=== PATIENT | female | born 1935 | race Caucasian/White ===

== ENCOUNTER 2017-08-19 09:34 | Inpatient (IN) ==
[2017-08-19] MEDS ORDERED: ALBUTEROL/IPRATROPIUM 3 ML NEB RESP TX STA (09:57)
[2017-08-19] MEDS ORDERED: SODIUM CHLORIDE 0.9% 1,000 ML IV STA (10:14)
[2017-08-19] MEDS ORDERED: LEVOFLOXACIN INJ 750 MG in PREMIX 1 EACH IV STA (10:35)
[2017-08-19 10:37] LABS: Basophils % 0.2 % (0.0-0.8); Eosinophils % 0.2 % (0.00-10.9); Hematocrit 45.1 VOL% (35.7-47.0); Hemoglobin 14.6 GM/DL (12.0-16.0); Immature Granulocytes % 0.6 %; Immature Granulocytes Absolute 0.08 #; Lymphocytes # 0.4 10*3/uL (1.4-4.0); Lymphocytes % 2.9 % (21.3-54.2); Mean Corpuscular HGB Conc 32.4 GM/DL (32-36); Mean Corpuscular Hemoglobin 27 PG (27-34); Mean Corpuscular Volume 82.8 FL (87-102); Mean Platelet Volume 11.6 FL (9.6-12.0); Monocytes # 0.8 10*3/uL (0.11-0.8); Monocytes % 6.5 % (1.7-12.7); Neutrophils # 11.3 10*3/uL (1.4-7.4); Neutrophils % 89.6 % (38.7-73.9); Platelet Count 171 T/CUMM (130-400); Red Blood Count 5.45 MC/CUMM (3.8-5.5); Red Cell Distribution Width 14.3 % (9.3-17.3); White Blood Count 12.6 T/CUMM (4-12)
[2017-08-19 10:43] LABS: Apearance,Urine CLOUDY (Clear); Bilirubin,Urine Negative (Negative); Blood, Urine Moderate mg/dL (Negative); Glucose,Urine (UA) 50 mg/dL (Negative); Hyaline Casts,Urine 8 /LPF (0-3); Ketones,Urine 5 mg/dL (Negative); Mucus,Urine Many /LPF (Occasional); Nitrite,Urine Negative (Negative); Protein,Urine 100 MG/DL; RBC,Urine 3 /HPF (0-4); Squamous Epithelial Cell,Urine Occasional /HPF (0-10); Urine Color Amber (Yellow); Urine Specific Gravity 1.015 (1.001-1.035); Urine Urobilinogen < 2.0 EU/DL (0.2-1.0); WBC,Urine 8 /HPF (0-6)
[2017-08-19 10:51] LABS: INR 2.3
[2017-08-19 10:53] LABS: PT Patient Result 23.2 SECS
[2017-08-19 11:00] LABS: Band Neutrophils 4 % (0-10); Eosinophils 1 % (0-10); Giant Platelets Few; Hypochromasia 1+; Lymphocytes 4 % (20-55); Ovalocytes Slight; Platelet Estimate Normal; Segmented Neutrophils 84 % (50-85); Total Cells Counted 100
[2017-08-19] MEDS ORDERED: LEVOFLOXACIN INJ 150 ML IV ONE (11:09)
[2017-08-19 11:11] LABS: Alanine Aminotransferase 23 U/L (13-56); Albumin 3.1 G/DL (3.4-5.0); Alkaline Phosphatase 92 U/L (45-117); Aspartate Amino Transferase 29 U/L (0-37); Blood Urea Nitrogen 30 MG/DL (7-18); Calcium 8.7 MG/DL (8.5-10.1); Glucose 125 MG/DL (74-106); Potassium 3.7 MMOL/L (3.5-5.1); Sodium 136 MMOL/L (136-145); Total Protein 6.7 G/DL (6.4-8.3)
[2017-08-19 11:12] LABS: Troponin I Only 0.087 NG/ML (0.00-0.045)
[2017-08-19] MEDS ORDERED: SODIUM CHLORIDE 0.9% 500 ML IV STA (11:26)
[2017-08-19] MEDS ORDERED: DOPamine 800 MG/250 ML PREMIX IV ONE (11:45)
[2017-08-19] MEDS ORDERED: DOPamine 800 MG/250 ML PREMIX IV SCH (12:00)
[2017-08-19] MEDS ORDERED: ONDANSETRON 4 MG/2 ML VIAL ONE (12:34)
[2017-08-19] MEDS ORDERED: ONDANSETRON 4 MG/2 ML VIAL IV PRN (12:59)
[2017-08-19] MEDS ORDERED: SODIUM CHLORIDE 0.9% 650 ML IV ONE (12:59)
[2017-08-19] MEDS ORDERED: ALBUTEROL 2.5 MG/3 ML NEB RESP TX PRN (12:59)
[2017-08-19] MEDS ORDERED: ACETAMINOPHEN 325 MG TABLET PO PRN (12:59)
[2017-08-19] MEDS ORDERED: ONDANSETRON 4 MG/2 ML VIAL IV STA (13:06)
[2017-08-19] MEDS: NOREPINEPHRINE 8 MG in SODIUM CHLORIDE 0.9% 242 ML IV SCH (13:20)
[2017-08-19] MEDS ORDERED: NOREPINEPHRINE 4 MG/4 ML VIAL IV ONE (13:22)
[2017-08-19] MEDS ORDERED: SODIUM CHLORIDE 0.9% 1,500 ML IV ONE (13:57)
[2017-08-19] MEDS ORDERED: INFLUENZA VIRUS VACCINE 0.5 ML SYRINGE IM ONE (14:27)
[2017-08-19] MEDS: WARFARIN 4 MG TABLET PO SCH (20:54)
[2017-08-19] MEDS: ATORVASTATIN 40 MG TABLET PO SCH (20:55)
[2017-08-19] MEDS: ASPIRIN EC 81 MG TABLET PO SCH (20:56)
[2017-08-20 01:33] LABS: Basophils % 0.1 % (0.0-0.8); Eosinophils # 0.5 10*3/uL (0.0-0.87); Eosinophils % 6.3 % (0.00-10.9); Hematocrit 37.5 VOL% (35.7-47.0); Hemoglobin 12.3 GM/DL (12.0-16.0); Immature Granulocytes % 0.3 %; Immature Granulocytes Absolute 0.03 #; Lymphocytes # 0.6 10*3/uL (1.4-4.0); Lymphocytes % 7.1 % (21.3-54.2); Mean Corpuscular HGB Conc 32.8 GM/DL (32-36); Mean Corpuscular Hemoglobin 28 PG (27-34); Mean Corpuscular Volume 84.1 FL (87-102); Mean Platelet Volume 11.7 FL (9.6-12.0); Monocytes # 0.7 10*3/uL (0.11-0.8); Monocytes % 7.8 % (1.7-12.7); NRBC # 0.02 10*3/uL; Neutrophils # 6.8 10*3/uL (1.4-7.4); Neutrophils % 78.4 % (38.7-73.9); Platelet Count 154 T/CUMM (130-400); Red Blood Count 4.46 MC/CUMM (3.8-5.5); Red Cell Distribution Width 14.5 % (9.3-17.3); White Blood Count 8.6 T/CUMM (4-12)
[2017-08-20 01:46] LABS: INR 2.5
[2017-08-20 01:48] LABS: PT Patient Result 25.2 SECS
[2017-08-20 02:06] LABS: CKMB % 1.2 %
[2017-08-20 02:07] LABS: Troponin I Only 0.065 NG/ML (0.00-0.045)
[2017-08-20 02:26] LABS: Calcium 7.6 MG/DL (8.5-10.1); Osmolality,Calculated 282.4 MOS/KG (273-304); Potassium 3.7 MMOL/L (3.5-5.1); Risk Ratio 4.14; Thyroid Stimulating Hormone 1.21 uIU/ml (0.358-3.74); VLDL CHOLESTEROL 19.8 MG/DL
[2017-08-20] MEDS: LEVOFLOXACIN INJ 500 MG in PREMIX 1 EACH IV SCH (08:34)
[2017-08-20] MEDS: PANTOPRAZOLE 40 MG TABLET PO SCH (08:35)
[2017-08-20] MEDS: NOREPINEPHRINE 8 MG in SODIUM CHLORIDE 0.9% 242 ML IV SCH (14:12)
[2017-08-20] MEDS: WARFARIN 4 MG TABLET PO SCH (21:08)
[2017-08-20] MEDS: ATORVASTATIN 40 MG TABLET PO SCH (21:10)
[2017-08-20] MEDS: ASPIRIN EC 81 MG TABLET PO SCH (21:10)
[2017-08-21 07:08] LABS: Basophils % 0.4 % (0.0-0.8); Eosinophils # 0.8 10*3/uL (0.0-0.87); Eosinophils % 10.7 % (0.00-10.9); Hematocrit 38.8 VOL% (35.7-47.0); Hemoglobin 12.4 GM/DL (12.0-16.0); Immature Granulocytes % 0.4 %; Immature Granulocytes Absolute 0.03 #; Lymphocytes # 1.1 10*3/uL (1.4-4.0); Lymphocytes % 14.6 % (21.3-54.2); Mean Corpuscular Hemoglobin 27 PG (27-34); Mean Corpuscular Volume 84.5 FL (87-102); Mean Platelet Volume 12.1 FL (9.6-12.0); Monocytes # 0.8 10*3/uL (0.11-0.8); Monocytes % 10.5 % (1.7-12.7); Neutrophils # 4.7 10*3/uL (1.4-7.4); Neutrophils % 63.4 % (38.7-73.9); Platelet Count 163 T/CUMM (130-400); Red Blood Count 4.59 MC/CUMM (3.8-5.5); Red Cell Distribution Width 14.1 % (9.3-17.3); White Blood Count 7.5 T/CUMM (4-12)
[2017-08-21 07:34] LABS: Potassium 3.7 MMOL/L (3.5-5.1)
[2017-08-21 07:39] LABS: Band Neutrophils 20 % (0-10); Eosinophils 3 % (0-10); Lymphocytes 13 % (20-55); Myelocytes 1 %; Segmented Neutrophils 54 % (50-85); Total Cells Counted 100
[2017-08-21 07:42] LABS: Anisocytosis 1+; Basophilic Stippling Slight; Poikilocytosis 1+
[2017-08-21] MEDS: PANTOPRAZOLE 40 MG TABLET PO SCH (08:58)
[2017-08-21] MEDS: LEVOFLOXACIN INJ 500 MG in PREMIX 1 EACH IV SCH (08:58)
[2017-08-21] MEDS: ATORVASTATIN 40 MG TABLET PO SCH (20:56)
[2017-08-21] MEDS: WARFARIN 4 MG TABLET PO SCH (20:56)
[2017-08-21] MEDS: ASPIRIN EC 81 MG TABLET PO SCH (20:56)
[2017-08-22 07:06] LABS: INR 2.9
[2017-08-22 07:16] LABS: PT Patient Result 29.4 SECS
[2017-08-22] MEDS: PANTOPRAZOLE 40 MG TABLET PO SCH (10:11)
[2017-08-22] MEDS: LEVOFLOXACIN INJ 500 MG in PREMIX 1 EACH IV SCH (10:13)
[2017-08-22 11:45] VITALS: BP 133/67
== END 2017-08-22 13:30 | disposition swing bed (61) | DRG 871 ==
LOC: N.ED 09:34 → N.EDINP 11:26 → SUATTDRO 11:26 → N.CC 12:38 → N.2E 08-20 13:26
PROVIDERS: ADMIT Hospitalist; ATTEND Internal Medicine